=== PATIENT | male | born 2000 | race Caucasian/White ===

== ENCOUNTER 2023-07-08 18:05 | Emergency (ER) | payer BC, SELFPAY ==
[2023-07-08 18:09] VITALS: BP 118/66; PULSE 81; RESP 18; TEMP 36.6; O2SAT 98; BMI 22.8
--- NOTE | 2023-07-08 18:17 | DI.RAD.S_ITS ---
PROCEDURE: XR FINGER LT MIN 2V INDICATIONS: cut tip of index finger with hatchet TECHNIQUE: AP hand, 2 views of the 2nd finger(s) acquired. COMPARISON: None. FINDINGS: Bones: Overlying bandages limits evaluation of finer bony detail. There is a possible cortical step-off along the radial aspect of the 2nd distal phalanx.. No suspicious bony lesions. Soft tissues: No suspicious soft tissue calcifications. IMPRESSION: Possible cortical step-off along the radial aspect of the 2nd distal phalanx, concerning for minimally or nondisplaced fracture. Dictated by: Ron Franco M.D. on 07/08/2023 at 17:51 Approved by: Ron Franco M.D. on 07/08/2023 at 17:52
--- NOTE | 2023-07-08 19:33 | ED_ITS ---
HPI - Wound/Laceration General Chief Complaint: Wound/Laceration Stated Complaint: lt pointer finger injury Time Seen by Provider: 07/08/23 19:06 Source: patient Mode of arrival: Ambulatory History of Present Illness HPI narrative: 23-year-old male no reported medical issues who presents with complaint of injury to his 2nd finger on his left hand. Patient was using a hatchet when he took off the tip. He states little bit painful but manageable. He is unsure if his tetanus is up-to-date. Patient states no other injuries. Denies any other medical issues no allergies to medications. He is camping at [facility] with friends. He lives in the [facility]. Tobacco, occasional alcohol, marijuana but no other recreational drugs. Related Data Previous Rx's Medication Instructions Recorded cephalexin 500 mg capsule 500 mg PO Q6H 5 days #20 caps 07/08/23 Allergies Allergy/AdvReac Type Severity Reaction Status Date / Time No Known Drug Allergies Allergy Verified 07/08/23 18:09 Review of Systems Review of Systems ROS Unobtainable: All systems reviewed & are unremarkable except as noted in HPI and below Patient History Social History Smoking Status: Never smoker Smoking Status: Never smoker alcohol intake frequency: holidays/special occasions only Substance Use Type: marijuana Exam Narrative Exam Narrative: GENERAL: Alert and oriented x three, well-appearing male in mild distres HEENT: Head normocephalic, atraumatic, EOMI, pupils reactive, face symmetric, moist mucous membranes NECK: Supple, full range of motion CARDIOVASCULAR: Regular rate and rhythm without murmurs, rubs or gallops. RESPIRATORY: Breath sounds equal bilaterally, no wheezes rales or rhonchi. EXTREMITIES: Normal range of motion, no clubbing or edema. Neurovascularly intact. Patient has avulsed the distal radial lateral tip of is 2nd digit on his left hand. There has a edge of the nail involved but the nail is intact and not raised up. I can not see any active bone there is a scant amount of bleeding still. Patient is otherwise neurovascularly intact sensation is intact. There is no flap or skin to suture over. NEUROLOGICAL: Cranial nerves II through XII grossly intact. Moving all extremities SKIN: Warm, dry, no petechiae, no rashes or lesions. Initial Vital Signs Initial Vital Signs: Vital Signs Temperature 97.8 F 07/08/23 18:09 Pulse Rate 81 07/08/23 18:09 Respiratory Rate 18 07/08/23 18:09 Blood Pressure 118/66 07/08/23 18:09 Pulse Oximetry 98 07/08/23 18:09 Oxygen Delivery Method Room Air 07/08/23 18:09 Course Orders Ordered: Discontinued Medications Bacitracin (Bacitracin Oint 0.9 Gm Pckt) 1 applic TOP NOW ONE Stop: 07/08/23 19:42 Last Admin: 07/08/23 19:50 Dose: 1 applic Documented By: TERRELL Cefazolin Sodium (Cephalexin 250 Mg Cap Prepack) 1 bottle MISC DIRECTED ONE Stop: 07/08/23 19:42 Last Admin: 07/08/23 19:50 Dose: 500 mg Documented By: TERRELL Diphtheria/Tetanus/Acell Pertussis (Tet,Diph,Pertuss(Acell),Vac/Pf 0.5 Ml Syringe) 0.5 ml IM .ONCE ONE Stop: 07/08/23 19:42 Last Admin: 07/08/23 19:50 Dose: 0.5 ml Documented By: TERRELL Vital Signs Vital signs: Vital Signs - 8 hr 07/08/23 18:09 Temperature 97.8 F Pulse Rate 81 Respiratory Rate 18 Blood Pressure 118/66 Pulse Oximetry 98 Oxygen Delivery Method Room Air MDM - Wound/Laceration Imaging Data Extremity x-ray #1: Radiologist's Impression: Wesly Han??23??M??2000 ? Allergy/Adv: No Known Drug Allergies Close Finger X-Ray (Signed) JoanRon - 07/08/23 Launch?[place] [address] XRay Report Signed Patient: Wesly Han MR#: [id number] : 2000 Acct:[id number] Age/Sex: 23 / M Date of Service: 07/08/23 Loc: ED Accession Number: [id number] Procedure: XR finger LT min 2V Ordering Provider: Allyson Lopez D.O. PROCEDURE: XR FINGER LT MIN 2V INDICATIONS: cut tip of index finger with hatchet TECHNIQUE: AP hand, 2 views of the 2nd finger(s) acquired. COMPARISON: None. FINDINGS: Bones: Overlying bandages limits evaluation of finer bony detail. There is a possible cortical step-off along the radial aspect of the 2nd distal phalanx.. No suspicious bony lesions. Soft tissues: No suspicious soft tissue calcifications. IMPRESSION: Possible cortical step-off along the radial aspect of the 2nd distal phalanx, concerning for minimally or nondisplaced fracture. Dictated by: Ron Franco M.D. on 07/08/2023 at 17:51 Approved by: Ron Franco M.D. on 07/08/2023 at 17:52 [facility] Narrative Medical decision making narrative: 23-year-old male discussed has not avulsed fingertip unable to close but will likely heal fairly well. Do not see any bony exposure but it is quite close. X-ray shows possible cortical step-off we will cover with oral antibiotic. Patient had dressing placed and discussed wound care need for follow-up and return precautions. Patient is unclear about his tetanus status he has not sure that he is actually up-to-date. This was updated. Discharge Plan Departure Patient Disposition: Home Clinical Impression: Avulsion of fingertip Activity Restrictions/Additional Instructions: Please follow-up in the next week for recheck. Take antibiotics until completed. Prescription is printed and included in your discharge papers. You can take Tylenol up to a 1000 mg every 6 hours and/or ibuprofen up to 600 mg every 6 hours as needed for pain. Wound Care: Keep wound(s) clean and dry. Wash once daily or if dirty, Make sure to change your dressing daily. Use a nonstick dressing over the site. Wash daily with soap and water only. You may use a topical triple antibiotic ointment to the affected area with dressing changes. Do not use over the counter products (alcohol or peroxide)on the wounds unless instructed by a physician. Return to the Emergency Department for any new or worsening symptoms. Return if fever greater than 100.4 Fahrenheit, increased swelling, increasing pain or worsening symptoms such as increased discharge or spreading redness. Prescriptions: New cephalexin 500 mg capsule 500 mg PO Q6H 5 Days Qty: 20 0RF Stand Alone Forms: Patient Portal/API
[2023-07-08] MEDS: cephALEXin 250 MG CAP PREPACK 1 BOTTLE MISC (19:50)
[2023-07-08] MEDS: TET,DIPH,PERTUSS(ACELL),VAC/PF 0.5 ML SYRINGE IM (19:50)
[2023-07-08] MEDS: BACITRACIN OINT 0.9 GM PCKT 1 APPLIC TOP (19:50)
[2023-07-08 20:16] VITALS: BP 126/71; PULSE 73; RESP 16; O2SAT 97
== END 2023-07-08 20:19 | disposition home or self-care (01) ==
PROVIDERS: Emergency Provider Emergency Medicine
DX: S61.301A Unspecified open wound of left index finger with damage to nail, initial encounter (principal); W27.8XXA Contact with other nonpowered hand tool, initial encounter; Z23 Encounter for immunization
CPT/HCPCS: 73140; 90471; 99283; 90715